=== PATIENT | male | born 1990 | race Caucasian/White ===

== ENCOUNTER 2018-03-17 13:11 | Emergency (ER) | payer BC ==
[2018-03-17] MEDS ORDERED: LIDOCAINE 2% VISCOUS SOLN 20 ML UDCUP PO ONE (13:47)
[2018-03-17] MEDS ORDERED: MAG HYDROX/AL HYDROX/SIMETH SUSP 30 ML UDCUP PO ONE (13:47)
[2018-03-17] MEDS ORDERED: METOCLOPRAMIDE HCL ORAL SOLN 10 MG/10 ML UDCUP PO ONE (13:47)
--- NOTE | 2018-03-17 13:47 | ER Document Report ---
ED Medical Screen (RME) - General Chief Complaint: Chest Pain Stated Complaint: CHEST PAIN Time Seen by Provider: 03/17/18 13:39 TRAVEL OUTSIDE OF THE [place] IN LAST 30 DAYS: No - HPI Notes: 03/17/18 13:47 Chest pain since 4 AM decreasing in intensity at this time - Related Data Allergies/Adverse Reactions: No Known Allergies Allergy (Verified 03/17/18 13:40) Past Medical History - Social History Frequency of alcohol use: None Drug Abuse: None Renal/ Medical History: Denies: Hx Peritoneal Dialysis Review of Systems - Review of Systems Cardiovascular: Chest pain Physical Exam - Vital signs Vitals: Temp Pulse Resp BP Pulse Ox 98.7 F 67 14 142/83 H 98 03/17/18 13:23 03/17/18 13:23 03/17/18 13:23 03/17/18 13:23 03/17/18 13:23 - Respiratory Respiratory status: No respiratory distress Chest status: Nontender Breath sounds: Normal Chest palpation: Normal - Cardiovascular Rhythm: Regular Heart sounds: Normal auscultation Course - Vital Signs Vital signs: Temp Pulse Resp BP Pulse Ox 98.7 F 67 14 142/83 H 98 03/17/18 13:23 03/17/18 13:23 03/17/18 13:23 03/17/18 13:23 03/17/18 13:23 Doctor's Discharge - Discharge Referrals: LM DARDEN MD [Primary Care Provider] - Follow up as needed
[2018-03-17 14:38] LABS: ABSOLUTE EOSINOPHILS # (AUTO) 0.1 10^3/uL (0.0-0.6); ABSOLUTE LYMPHOCYTES (AUTO) 1.3 10^3/uL (0.5-4.7); ABSOLUTE MONOCYTES (AUTO) 0.4 10^3/uL (0.1-1.4); ABSOLUTE NEUT (AUTO) 3.8 10^3/uL (1.7-8.2); BASOPHILS % (AUTO) 0.8 % (0-2); HEMATOCRIT 41.2 % (37.9-51.0); HEMOGLOBIN 14.6 g/dL (13.5-17.0); LYMPHOCYTES % (AUTO) 22.6 % (13-45); MEAN CORPUSCULAR HEMOGLOBIN 29.5 pg (27.0-33.4); MEAN CORPUSCULAR HGB CONC 35.4 g/dL (32.0-36.0); MEAN CORPUSCULAR VOLUME 83 fl (80-97); MONOCYTES % (AUTO) 7.3 % (3-13); PLATELET COUNT 180 10^3/uL (150-450); RED BLOOD COUNT 4.94 10^6/uL (4.35-5.55); RED CELL DISTRIBUTION WIDTH 12.9 % (11.5-14.0); SEGMENTED NEUTROPHILS % (AUTO) 67.3 % (42-78); TOTAL CELLS COUNTED % (AUTO) 100 %; WHITE BLOOD COUNT 5.6 10^3/uL (4.0-10.5)
[2018-03-17 14:55] LABS: ALANINE AMINOTRANSFERASE 60 U/L (21-72); ALBUMIN 4.6 g/dL (3.5-5.0); ALKALINE PHOSPHATASE 42 U/L (38-126); ANION GAP 12 (5-19); ASPARTATE AMINO TRANSFERASE 40 U/L (17-59); BILIRUBIN,DIRECT 0.5 mg/dL (0.0-0.4); BLOOD UREA NITROGEN 12 mg/dL (7-20); CALCIUM 10.3 mg/dL (8.4-10.2); CARBON DIOXIDE 27 mmol/L (22-30); CHLORIDE 102 mmol/L (98-107); CREATINE KINASE 142 U/L (55-170); GLUCOSE 99 mg/dL (75-110); LIPASE 124.5 U/L (23-300); POTASSIUM 4.4 mmol/L (3.6-5.0); SODIUM 141.3 mmol/L (137-145); TOTAL PROTEIN 7.5 g/dL (6.3-8.2)
--- NOTE | 2018-03-17 14:57 | RADIOLOGY REPORT (SQ) ---
EXAM DESCRIPTION: CHEST 2 VIEWS COMPLETED DATE/TIME: 03/17/2018 2:47 pm REASON FOR STUDY: sob COMPARISON: None. EXAM PARAMETERS: NUMBER OF VIEWS: two views TECHNIQUE: Digital Frontal and Lateral radiographic views of the chest acquired. RADIATION DOSE: NA LIMITATIONS: none FINDINGS: LUNGS AND PLEURA: No opacities, masses or pneumothorax. No pleural effusion. MEDIASTINUM AND HILAR STRUCTURES: No masses or contour abnormalities. HEART AND VASCULAR STRUCTURES: Heart normal size. No evidence for failure. BONES: No acute findings. HARDWARE: None in the chest. OTHER: No other significant finding. IMPRESSION: NO ACUTE RADIOGRAPHIC FINDING IN THE CHEST. TECHNICAL DOCUMENTATION: JOB ID: [id number] 2021 [employer] Software- All Rights Reserved Reading location - IP/workstation name: [email or web address]
[2018-03-17 15:06] LABS: TROPONIN I < 0.012 ng/mL
--- NOTE | 2018-03-17 15:20 | ER Document Report ---
ED General - General Chief Complaint: Chest Pain Stated Complaint: CHEST PAIN Time Seen by Provider: 03/17/18 13:39 TRAVEL OUTSIDE OF THE [place] IN LAST 30 DAYS: No - HPI Notes: Patient is a 27-year-old male that presents to the emergency department for chief complaint of chest pain. She reports intermittent substernal chest pain with no radiation since 4 AM this morning. He states the pain feels like a squeezing sharp sensation. The pain lasts for 10-15 seconds at a time and then completely resolves. He states it has been intermittent since onset at 4 AM. He reports associated nausea but denies any diaphoresis, vomiting or shortness of breath. He does not know his father's family history but denies any cardiac history on his mother's side. He has not had any recent surgery, travel or immobilizations. He denies history of DVT/PE. Currently he states he is not having the symptoms since receiving a GI cocktail in triage. Patient denied any relief of his symptoms at home after taking Tums or Maalox. He denied any aggravating factors. Past Medical History: Negative Past Surgical History: Right wrist surgery, tonsils and adenoids Social History: Daily vaporized nicotine, smoker, occasional alcohol, denies drug use. Family History: Reviewed and noncontributory for presenting illness Allergies: Reviewed, see documented allergy list. REVIEW OF SYSTEMS: CONSTITUTIONAL : No fever No chills No diaphoresis No recent illness EENT: No vision changes No congestion No sore throat CARDIOVASCULAR: chest pain No palpitations RESPIRATORY: No shortness of breath No cough No difficulty breathing GASTROINTESTINAL: No abdominal pain nausea No vomiting No diarrhea GENITOURINARY: No dysuria No hematuria No difficulty urinating MUSCULOSKELETAL: No back pain No leg pain No arm pain SKIN: No rashes No lesions LYMPHATIC: No swollen, enlarged glands. NEUROLOGICAL: No lightheadedness No headache No weakness No paresthesias PSYCHIATRIC: No anxiety No depression PHYSICAL EXAMINATION: Vital signs reviewed, nursing noted reviewed. GENERAL: Well-appearing, well-nourished and in no acute distress. HEAD: Atraumatic, normocephalic. EYES: Eyes appear normal, extraocular movements intact, sclera anicteric, conjunctiva are normal. ENT: nares patent, oropharynx clear without exudates. Moist mucous membranes. NECK: Normal range of motion, supple without lymphadenopathy LUNGS: Breath sounds clear to auscultation bilaterally and equal. No wheezes rales or rhonchi. HEART: Regular rate and rhythm without murmurs ABDOMEN: Soft, nontender, normoactive bowel sounds. No rebound, guarding, or rigidity. No masses appreciated. EXTREMITIES: Nontender, good range of motion, no pitting or edema. NEUROLOGICAL: No focal neurological deficits. Moves all extremities spontaneously Motor and sensory grossly intact on exam. PSYCH: Normal mood, normal affect. SKIN: Warm, Dry, normal turgor, no rashes or lesions noted on exposed skin - Related Data Allergies/Adverse Reactions: No Known Allergies Allergy (Verified 03/17/18 13:40) Past Medical History - Social History Smoking Status: Current Every Day Smoker Frequency of alcohol use: None Drug Abuse: None Family History: Reviewed & Not Pertinent Patient has suicidal ideation: No Patient has homicidal ideation: No Renal/ Medical History: Denies: Hx Peritoneal Dialysis Past Surgical History: Reports: Hx Orthopedic Surgery - right wrist, Hx Tonsillectomy Review of Systems - Review of Systems Notes: Dictated Physical Exam - Vital signs Vitals: Temp Pulse Resp BP Pulse Ox 98.7 F 67 14 142/83 H 98 03/17/18 13:23 03/17/18 13:23 03/17/18 13:23 03/17/18 13:23 03/17/18 13:23 - Notes Notes: Dictated Course - Re-evaluation Re-evalutation: 03/17/18 15:17 Vitals reviewed. Nursing notes reviewed. EKG shows no acute ischemia. Chest x -ray shows no pneumothorax. Troponin is negative. Patient has remained asymptomatic now since receiving GI cocktail. His heart score is 1 and he is at low risk for major cardiac event. I did offer him a repeat troponin however patient has elected to follow closely with his primary care provider for reevaluation. He will return to the emergency room if his chest pain worsens or changes, or for new concerning symptoms. Patient will see his primary care provider this week. Discharged home in stable condition. Laboratory 03/17/18 03/17/18 03/17/18 14:16 14:16 14:16 WBC 5.6 RBC 4.94 Hgb 14.6 Hct 41.2 MCV 83 MCH 29.5 MCHC 35.4 RDW 12.9 Plt Count 180 Seg Neutrophils % 67.3 Lymphocytes % 22.6 Monocytes % 7.3 Eosinophils % 2.0 Basophils % 0.8 Absolute Neutrophils 3.8 Absolute Lymphocytes 1.3 Absolute Monocytes 0.4 Absolute Eosinophils 0.1 Absolute Basophils 0.0 Sodium 141.3 Potassium 4.4 Chloride 102 Carbon Dioxide 27 Anion Gap 12 BUN 12 Creatinine 0.89 Est GFR ( Amer) > 60 Est GFR (Non-Af Amer) > 60 Glucose 99 Calcium 10.3 H Total Bilirubin 1.0 Direct Bilirubin 0.5 H Neonat Total Bilirubin Not Reportable Neonat Direct Bilirubin Not Reportable Neonat Indirect Bili Not Reportable AST 40 ALT 60 Alkaline Phosphatase 42 Creatine Kinase 142 CK-MB (CK-2) 1.10 Troponin I < 0.012 Total Protein 7.5 Albumin 4.6 Lipase 124.5 Chest X-Ray 03/17/18 13:46 IMPRESSION: NO ACUTE RADIOGRAPHIC FINDING IN THE CHEST. - Vital Signs Vital signs: Temp Pulse Resp BP Pulse Ox 98.7 F 67 14 142/83 H 98 03/17/18 13:23 03/17/18 13:23 03/17/18 13:23 03/17/18 13:23 03/17/18 13:23 - Laboratory Result Diagrams: 03/17/18 14:16 03/17/18 14:16 Laboratory results interpreted by me: 03/17/18 14:16 Calcium 10.3 H Direct Bilirubin 0.5 H Discharge - Discharge Clinical Impression: Chest pain Qualifiers: Chest pain type: unspecified Qualified Code(s): R07.9 - Chest pain, unspecified Condition: Stable Disposition: HOME, SELF-CARE Instructions: Chest Pain of Unclear Cause ([facility]) Additional Instructions: Please return to the emergency department if you have any worsening, or concern of your symptoms. Please return to the emergency department if you develop chest pain, difficulty breathing, severe abdominal pain, or ongoing vomiting. Please follow-up with your primary care physician in 2-3 days and any other recommended physicians. If prescribed, take all medications as directed. If you have any questions or concerns do not hesitate to return the emergency department for evaluation. [] Referrals: LM DARDEN MD [Primary Care Provider] - Follow up in 3-5 days
[2018-03-17 16:06] VITALS: BP 146/88
--- NOTE | 2018-03-17 18:11 | EKG REPORT ---
SEVERITY:- NORMAL ECG - SINUS RHYTHM : Confirmed by: Kristen Jo MD 17-Mar-2018 18:11:33
== END 2018-03-17 16:00 | disposition home or self-care (01) ==
LOC: ER 13:11
DX: R07.89 Other chest pain (principal); R11.0 Nausea; F17.290 Nicotine dependence, other tobacco product, uncomplicated
CPT/HCPCS: 93005; 99285; 36415; 82553; 82550; 83690; 85025; 80053; 84484; 71046; 93010; J3490